=== PATIENT | female | born 1975 | race African-American/Black ===

== ENCOUNTER 2019-12-19 06:27 | Emergency (ER) | payer MEDICAID ==
[~2019-12-19] VITALS: Ht 172.7 cm; Wt 105.0 kg
[~2019-12-19 06:27] MED LIST: AUGMENTIN
[2019-12-19 06:43] VITALS: BP 121/73
== END 2019-12-19 08:06 | disposition home or self-care (01) ==
LOC: ER 06:27
DX: H60.502 Unspecified acute noninfective otitis externa, left ear (principal)
CPT/HCPCS: 99283

== ENCOUNTER 2020-05-09 07:28 | Emergency (ER) | payer MEDICAID ==
[~2020-05-09] VITALS: Ht 170.2 cm; Wt 116.0 kg
[2020-05-09] MEDS ORDERED: KETOROLAC 30MG/ML VIAL IM ONE (09:00)
[2020-05-09] MEDS ORDERED: CYCLOBENZAPRINE 10MG TABLET PO ONE (09:00)
[2020-05-09 10:22] LABS: CLARITY URINE CLOUDY (CLEAR); COLOR URINE YELLOW (YELLOW); KETONES URINE NEGATIVE (NEGATIVE); LEUKOCYTE ESTERASE URINE TRACE (NEGATIVE); NITRITE URINE NEGATIVE (NEGATIVE); OCCULT BLOOD URINE NEGATIVE (NEGATIVE); PH URINE 5.5 (4.5-8.0); PROTEIN URINE NEGATIVE (NEGATIVE); SPECIFIC GRAVITY URINE 1.032 (1.005-1.030); UROBILINOGEN URINE 0.2 E.U./dL (0.2-1.0)
[2020-05-09] MEDS ORDERED: NAPR-1176 MT (10:49)
[2020-05-09] MEDS ORDERED: CEPH500C2 MT (10:49)
[2020-05-09 11:05] VITALS: BP 123/68
== END 2020-05-09 11:07 | disposition home or self-care (01) ==
LOC: ER 07:28
DX: M54.5 Low back pain (principal); N39.0 Urinary tract infection, site not specified
CPT/HCPCS: 81003; 81025; 96372; 99283; J1885

== ENCOUNTER 2023-08-29 08:42 | Emergency (ER) | payer MEDICAID ==
[~2023-08-29] VITALS: Ht 167.6 cm; Wt 90.0 kg
[~2023-08-29 08:42] MED LIST changes: -AUGMENTIN; +KEPP500 PO
[2023-08-29 08:44] VITALS: O2SAT 98
[2023-08-29] MEDS: LEVETIRACETAM 500MG TABLET PO ONE (09:11)
[2023-08-29 10:20] VITALS: BP 132/90; PULSE 64; RESP 18; TEMP 98.2
== END 2023-08-29 10:30 | disposition home or self-care (01) ==
LOC: ER 08:42
DX: R56.9 Unspecified convulsions (principal)
CPT/HCPCS: 99283

== ENCOUNTER 2023-11-23 16:46 | Emergency (ER) | payer MEDICAID ==
[~2023-11-23] VITALS: Ht 172.7 cm; Wt 120.0 kg
[2023-11-23 16:48] VITALS: BP 145/74; TEMP 98.8; O2SAT 99
[2023-11-23 16:56] VITALS: PULSE 77; O2SAT 99
== END 2023-11-23 20:04 | disposition home or self-care (01) ==
LOC: ER 16:46
DX: R09.A9 Foreign body sensation, other site (principal); Z86.59 Personal history of other mental and behavioral disorders
CPT/HCPCS: 73660; 99283

== ENCOUNTER 2024-08-04 18:20 | Emergency (ER) | payer MEDICAID ==
[~2024-08-04] VITALS: Ht 170.2 cm; Wt 120.6 kg
[2024-08-04 18:22] VITALS: BP 153/106; PULSE 96; RESP 18; TEMP 36.9; O2SAT 100; O2SAT 98
[2024-08-04 18:50] LABS: BASOPHILS % 1.1 % (0.0-2.0); EOSINOPHILS % 2.7 % (0.0-5.0); HEMOGLOBIN. 10.4 g/dL (12.0-16.0); LYMPHOCYTES % 30.2 % (20.0-50.0); MEAN CORPUSCULAR HEMOGLOBIN 27.8 pg (28.0-32.0); MEAN CORPUSCULAR HGB CONC 32.7 g/dL (31.0-37.0); MEAN CORPUSCULAR VOLUME 85.1 fL (81.0-99.0); MEAN PLATELET VOLUME 8.7 fl (7.4-10.4); MONOCYTES % 7.2 % (2.0-8.0); NEUTROPHILS % 58.8 % (40.0-76.0); PLATELET 262 x1000/uL (130-400); RED BLOOD CELL COUNT 3.76 mill/uL (4.2-5.4); RED CELL DISTRIBUTION WIDTH 17.1 % (11.6-14.6); WHITE BLOOD COUNT 8.6 x1000/uL (4.5-11.0)
[2024-08-04 19:03] LABS: CHLORIDE 105 mEq/L (98-107); POTASSIUM 3.7 mEq/L (3.5-5.1); SODIUM 138 mEq/L (136-145)
[2024-08-04 19:04] LABS: CALCIUM 8.3 mg/dL (8.7-10.4); CARBON DIOXIDE 25 mEq/L (21-32)
[2024-08-04 19:09] LABS: CREATININE 0.9 mg/dL (0.6-1.0); GLUCOSE 124 mg/dL (70-105); UREA NITROGEN BLOOD 10 mg/dL (9-23)
[2024-08-04 20:27] LABS: CLARITY URINE CLEAR (CLEAR); COLOR URINE YELLOW (YELLOW); GLUCOSE URINE NEGATIVE (NEGATIVE); KETONES URINE NEGATIVE (NEGATIVE); LEUKOCYTE ESTERASE URINE TRACE (NEGATIVE); NITRITE URINE NEGATIVE (NEGATIVE); OCCULT BLOOD URINE 3+ (NEGATIVE); PH URINE 5.5 (4.5-8.0); PROTEIN URINE 1+ (NEGATIVE); SPECIFIC GRAVITY URINE 1.027 (1.005-1.030)
[2024-08-04 20:39] LABS: BACTERIA URINE 1+; RBC URINE TNTC /hpf (0-2); SQUAMOUS EPITHELIAL CELL URINE 1+ /lpf (RARE/1+); WBC URINE 0-2 /hpf (0-2)
[2024-08-04] MEDS ORDERED: TOPUD MT (21:11)
[2024-08-04] MEDS ORDERED: IBUP-1525 MT (21:11)
[2024-08-04] MEDS ORDERED: TRAN650T5 MT (21:11)
== END 2024-08-04 21:35 | disposition home or self-care (01) ==
LOC: ER 18:20
DX: G40.909 Epilepsy, unspecified, not intractable, without status epilepticus (principal); N92.0 Excessive and frequent menstruation with regular cycle; Z79.899 Other long term (current) drug therapy
CPT/HCPCS: 36415; 80048; 81003; 85025; 93005; 99283; 99284

== ENCOUNTER 2024-08-04 21:37 | Emergency (ER) | payer MEDICAID ==
[~2024-08-04] VITALS: Ht 167.6 cm; Wt 117.0 kg
[~2024-08-04 21:37] MED LIST changes: +IBUP-1525 MT; +TOPUD MT; +TRAN650T5 MT
[2024-08-04 21:49] VITALS: O2SAT 97
[2024-08-04 21:50] VITALS: TEMP 36.8; O2SAT 99
[2024-08-04 23:28] VITALS: BP 180/91; PULSE 72; RESP 16
[2024-08-04] MEDS: IBUPROFEN 400MG TABLET PO ONE (23:28)
[2024-08-05] MEDS ORDERED: IBUPROFEN 200MG TABLET PO ONE (01:00)
== END 2024-08-05 02:11 | disposition home or self-care (01) ==
LOC: ER 21:37
DX: R51.9 Headache, unspecified (principal); Z79.899 Other long term (current) drug therapy
CPT/HCPCS: 99284